=== PATIENT | male | born 1970 | race Caucasian/White ===

== ENCOUNTER 2020-11-14 18:41 | Emergency (ER) | payer BC ==
[~2020-11-14] VITALS: Ht 177.8 cm; Wt 75.3 kg
--- NOTE | 2020-11-14 19:39 | PHYS DOC ---
General Adult EDM: Chief Complaint: HEAD INJURY/TRAUMA HPI: HPI: ".. 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 and roll off reid and landed on my head .. I was pinned for a while..." Patient is a 50 year old male who presents with above hx and complaints of head and neck injury when his riding client services representative fell on him.. Patient has an obvious contusion and swelling on the left side of head. Patient states that his headache is improved significantly while waiting in waiting room. Patient denies any history of coagulopathy. Does have some upper neck pain. Patient denies any loss of consciousness. No recent travel. No history immunosuppression. No history of severe ill contacts. Review of Systems: Review of Systems: Constitutional: Denies fever or chills Eyes: Denies change in visual acuity HENT: Complains of head and upper neck injury Respiratory: Denies cough or shortness of breath Cardiovascular: Denies chest pain or edema GI: Denies abdominal pain, nausea, vomiting, bloody stools or diarrhea : Denies dysuria Musculoskeletal: Denies back pain or joint pain Integument: Denies rash Neurologic: Denies headache, focal weakness or sensory changes Endocrine: Denies polyuria or polydipsia Lymphatic: Denies swollen glands Psychiatric: Denies depression or anxiety Family History: Family History: Noncontributory to presentation Current Medications: Current Meds: See nursing for home meds Allergies: Allergies: No known drug allergies Physical Exam: PE: Constitutional: Well developed, well nourished, moderate acute distress, non- toxic appearance. [] HENT: Normocephalic, obvious contusion to left side of head and edema and some upper neck tenderness, bilateral external ears normal, oropharynx moist, no oral exudates, nose normal. [] Eyes: PERRLA, EOMI, conjunctiva normal, no discharge. [] Neck: Normal range of motion, upper neck tenderness, supple, no stridor. [] Cardiovascular:Heart rate regular rhythm, no murmur [] Lungs & Thorax: Bilateral breath sounds equal at apex on auscultation [] Abdomen: Bowel sounds normal, soft, no tenderness, no masses, no pulsatile masses. [] Skin: Warm, dry, no erythema, no rash. [] Back: No tenderness, no CVA tenderness. [] Extremities: No tenderness, no cyanosis, no clubbing, ROM intact, no edema. [] Neurologic: Alert and oriented X 3, normal motor function, normal sensory function, no focal deficits noted. DTRs +2 patella brachial. Sleeve Setter Safety Stitch equal. Amatory without problems. Psychologic: Affect anxious, judgement normal, mood normal. [] EKG: EKG: [] Radiology/Procedures: Radiology/Procedures: [][place] [address] IMAGING REPORT Signed PATIENT: MICHELINE HEART ACCOUNT: [id number] : 1970 LOCATION: ER AGE: 50 SEX: M EXAM STATUS: REG ER ORD. 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 Sagittal and coronal reformats were obtained of the cervical spine. One or more of the following individualized dose reduction techniques were utilized for this examination: 1. Automated exposure control 2. Adjustment of the mA and/or kV according to patient size 3. Use of iterative reconstruction technique. FINDINGS: CT head: The ventricles and sulci are normal. Holden-white matter differentiation is maintained. There is no intracranial hemorrhage, acute infarct, or mass lesion. Basal cisterns are clear. The skull and scalp are intact. Paranasal sinuses and mastoid air cells are clear. Globes and orbits are intact.. CT cervical spine: No acute fracture. Alignment is normal. The craniocervical junction and atlantoaxial interval are maintained. Mild disc space narrowing, greatest at C5- C6 and C6-C7 with prominent anterior osteophytes and uncovertebral joint proliferation. There is moderate left foraminal narrowing at C5-C6. Prevertebral soft tissues normal.. IMPRESSION: 1. No acute intracranial abnormality. 2. No acute osseous abnormality of the cervical spine. Electronically signed by: Debbie Harding MD (11/14/2020 8:04 PM) [id number] DICTATED AND SIGNED BY: DEBBIE HARDING MD DATE: 11/14/201999 CC: SANDRA HULL MD; PCP,NO ~MTH0 0 Heart Score: C/O Chest Pain: N/A Risk Factors: Risk Factors: DM, Current or recent (<one month) smoker, HTN, HLP, family history of CAD, obesity. Risk Scores: Score 0 - 3: 2.5% MACE over next 6 weeks - Discharge Home Score 4 - 6: 20.3% MACE over next 6 weeks - Admit for Clinical Observation Score 7 - 10: 72.7% MACE over next 6 weeks - Early Invasive Strategies Course & Med Decision Making: Course & Med Decision Making Pertinent Labs and Imaging studies reviewed. (See chart for details) Patient use ice packs as needed. Take only Tylenol for pain for the next couple days. Advance to NSAIDs after 2 days. Patient return if any concerns. If any mental status changes or vomiting more than twice after returning home must have reexam tonight. Return if any concerns. Follow-up primary care. Impression: 1. Head contusion 2. Neck sprain strain [] Dragon Disclaimer: Dragon Disclaimer: This electronic medical record was generated, in whole or in part, using a voice recognition dictation system. Departure Departure: Referrals: PCP,NO (PCP) Dragon Disclaimer This chart was dictated in whole or in part using Voice Recognition software in a busy, high-work load, and often noisy Emergency Department environment. It may contain unintended and wholly unrecognized errors or omissions. Dragon Disclaimer This chart was dictated in whole or in part using Voice Recognition software in a busy, high-work load, and often noisy Emergency Department environment. It may contain unintended and wholly unrecognized errors or omissions. SANDRA HULL MD November 14, 2020 19:39
--- NOTE | 2020-11-14 20:06 | RAD ---
EXAM: CT head and cervical spine without contrast INDICATION: Riding lawnmower, fell on head COMPARISON: None TECHNIQUE: Axial CT imaging through the head and cervical spine without intravenous contrast. Sagitta l and coronal reformats were obtained of the cervical spine. One or more of the following individualized dose reduction techniques were utilized for this examinat ion: 1. Automated exposure control 2. Adjustment of the mA and/or kV according to patient size 3. Use of iterative reconstruction technique. FINDINGS: CT head: The ventricles and sulci are normal. Holden-white matter differentiation is maintained. There is no in tracranial hemorrhage, acute infarct, or mass lesion. Basal cisterns are clear. The skull and scalp are intact. Paranasal sinuses and mastoid air cells are clear. Globes and orbits are intact.. CT cervical spine: No acute fracture. Alignment is normal. The craniocervical junction and atlantoaxial interval are marcellus ntained. Mild disc space narrowing, greatest at C5-C6 and C6-C7 with prominent anterior osteophytes a nd uncovertebral joint proliferation. There is moderate left foraminal narrowing at C5-C6. Prevertebr al soft tissues normal.. IMPRESSION: 1. No acute intracranial abnormality. 2. No acute osseous abnormality of the cervical spine. Electronically signed by: Debbie Harding MD (11/14/2020 8:04 PM) [id number]
[2020-11-14 20:24] VITALS: BP 151/106
== END 2020-11-14 20:54 | disposition home or self-care (01) ==
LOC: ER 18:41
DX: S13.9XXA Sprain of joints and ligaments of unspecified parts of neck, initial encounter (principal); S00.83XA Contusion of other part of head, initial encounter; W18.39XA Other fall on same level, initial encounter; Y93.89 Activity, other specified; Y92.89 Other specified places as the place of occurrence of the external cause; Y99.8 Other external cause status
CPT/HCPCS: 70450; 72125; 99285-25